=== PATIENT | female | born 1925 | race Caucasian/White ===

== ENCOUNTER → 2016-05-31 | Outpatient (CLI) | payer MEDICARE, BC ==
[2016-05-31 13:09] LABS: CHLORIDE,CL 107 mmol/L (98-110); SODIUM,NA 141 mmol/L (136-146)
--- NOTE | 2016-05-31 13:26 | CR ---
EXAMINATION: Two-view chest (PA and Lateral views). HISTORY: Hypertension. FINDINGS: The trachea is midline. The heart is moderately prominent in size. There is a small right pleural ef fusion. Mild chronic interstitial prominence. No pneumothorax. Aortic calcifications are noted. Osseous structures appear osteopenic. IMPRESSION: Small right pleural effusion.
== END ==
LOC: MW.CHFP 12:22
PROVIDERS: ATTEND Emergency Medicine
DX: I48.91 Unspecified atrial fibrillation (principal); I10 Essential (primary) hypertension; J90 Pleural effusion, not elsewhere classified
CPT/HCPCS: 36415; 69210; 71020; 80048; G0463

== ENCOUNTER → 2016-06-07 | Outpatient (CLI) | payer MEDICARE, BC | LOC: MW.CHFP 08:00 | PROVIDERS: ATTEND Emergency Medicine | DX: Z51.81 Encounter for therapeutic drug level monitoring (principal); Z79.01 Long term (current) use of anticoagulants; I48.91 Unspecified atrial fibrillation | CPT/HCPCS: 85610; 99211 ==

== ENCOUNTER → 2016-07-19 | Outpatient (CLI) | payer MEDICARE, BC | LOC: MW.CHFP 08:00 | PROVIDERS: ATTEND Emergency Medicine | DX: Z51.81 Encounter for therapeutic drug level monitoring (principal); Z79.01 Long term (current) use of anticoagulants; I48.91 Unspecified atrial fibrillation | CPT/HCPCS: 85610; 99211 ==